=== PATIENT | female | born 1950 | race Two or more races ===

== ENCOUNTER 2018-11-02 00:37 | Emergency (ER) | payer OTHER ==
[~2018-11-02] VITALS: Ht 165.1 cm; Wt 74.8 kg
--- NOTE | 2018-11-02 02:02 | NUR ---
Patient discharged to home in stable conditon. Written and verbal after care instructions given. Patient verbalizes understanding of instructions.
== END 2018-11-02 02:03 | disposition home or self-care (01) ==
LOC: ER 00:39
DX: S16.1XXA Strain of muscle, fascia and tendon at neck level, initial encounter (principal); S40.022A Contusion of left upper arm, initial encounter; X58.XXXA Exposure to other specified factors, initial encounter; Y93.89 Activity, other specified; Y92.89 Other specified places as the place of occurrence of the external cause; Y99.8 Other external cause status
CPT/HCPCS: 72072; 73060; A4663